=== PATIENT | male | born 1950 | race Caucasian/White ===

== ENCOUNTER 2016-06-26 10:58 | Emergency (ER) | payer MEDICARE, OTHER ==
[~2016-06-26] VITALS: Ht 160 cm; Wt 77.0 kg
[~2016-06-26 10:58] MED LIST: ASPI-557 PO; ASPI325T; ATOR40TA64 PO; CARV3.1232 PO; CETI5TAB26 PO; CLOP75TA; FERR325C PO; HYDR59LO5 TOP; LISI2.5T2 PO; METF-200 PO; NITR0.4T28 SL
[2016-06-26 11:00] VITALS: Ht 160 cm; Wt 77.0 kg
--- OUTSIDE RECORDS SUMMARY | 2016-06-26 11:02 | XMS REPORT | Continuity of Care Document ---
Author Author [facility] Organization [facility] Address Unknown Phone Unavailable Allergies Active Description Code Type Severity Reaction Onset Reported/Identified Relationship to Patient Clinical Status Yes No Known Allergies Drug Allergy 11/12/2011 Yes No Known Drug Allergies Drug Allergy 11/12/2011 Yes No Known Food Allergies Food Allergy 11/12/2011 Yes No Known Medication Allergies NKMA N/A N/A 11/06/2013 Medications Problems Date Dx Coded Attending Type Code Diagnosis Diagnosed By 11/12/2011 Rey Raymond MD Final 410.71 SUBEND INFARCT-INITIAL 11/12/2011 Rey Raymond MD Admitting 786.59 CHEST PAIN NEC 11/15/2011 Rey Raymond MD Final 250.00 DM2/NOS UNCOMP NSU 11/15/2011 Rey Raymond MD Final 272.4 HYPERLIPIDEMIA NEC NOS 11/15/2011 Rey Raymond MD Final 276.1 HYPOSMOLALITY 11/15/2011 Rey Raymond MD Final 276.8 HYPOPOTASSEMIA 11/15/2011 Rey Raymond MD Final 288.60 LEUKOCYTOSIS NOS 11/15/2011 Rey Raymond MD Final 305.1 TOBACCO USE DISORDER 11/15/2011 Rey Raymond MD Final 410.71 SUBEND INFARCT-INITIAL 11/15/2011 Rey Raymond MD Final 414.01 COR -[place] VESSEL 11/15/2011 Rey Raymond MD Final 511.9 PLEURAL EFFUSION NOS 11/15/2011 Rey Raymond MD Admitting 786.59 CHEST PAIN NEC 11/15/2011 Rey Raymond MD Final 799.02 HYPOXEMIA 11/15/2011 Rey Raymond MD Final 250.00 DM2/NOS UNCOMP NSU 11/15/2011 Rey Raymond MD Final 272.4 HYPERLIPIDEMIA NEC NOS 11/15/2011 Rey Raymond MD Final 276.1 HYPOSMOLALITY 11/15/2011 Rey Raymond MD Final 276.8 HYPOPOTASSEMIA 11/15/2011 Rey Raymond MD Final 288.60 LEUKOCYTOSIS NOS 11/15/2011 Rey Raymond MD Final 305.1 TOBACCO USE DISORDER 11/15/2011 Rey Raymond MD Final 414.01 COR -[place] VESSEL 11/15/2011 Rey Raymond MD Final 511.9 PLEURAL EFFUSION NOS 11/15/2011 Rey Raymond MD Final 799.02 HYPOXEMIA Procedures Code Description Performed By Performed On 36.12 AO-COR BYPASS-2 COR ART Moira Atkins MD 11/15/2011 36.15 1 INT NIKITA-COR ART BYPASS Moira Atkins MD 11/15/2011 39.61 EXTRACORPOREAL CIRCULAT Moira Atkins MD 11/15/2011 Results Encounters ACCT No. Visit Date/Time Discharge Status Pt. Type Provider Facility Loc./Unit Complaint [id number] 11/12/2011 13:58:00 2011 15:15:00 DIS Inpatient Rey Raymond MD [facility] on [address]
--- OUTSIDE RECORDS SUMMARY | 2016-06-26 11:03 | XMS REPORT | Continuity of Care Document ---
Author Author [facility] Organization [facility] Address Unknown Phone Unavailable Support Name Relationship Address Phone MERCEDES QUIÑONES MD Caregiver [facility] [address] [place] [address] , [facility] [address] [place] [address] [phone] AMEYA JACKSON MD Caregiver [address] [place] [address] [place] [address] BRANDON VEGAS Next Of Kin [address] [place] [address] Insurance Providers Payer Name Policy Number Subscriber Name Relationship [facility] [id number] Mike Vegas Sr 17 Self Advance Directives Directive Response Recorded Date/Time Ordered Resuscitation Status Full Code 03/18/14 2:39pm Resuscitation Documents on File No 03/18/14 11:05am Problems Medical Problems Problem Onset Date Status Cellulitis of left lower leg Unknown Active Cellulitis of left lower leg Unknown Active Constipation Unknown Active Constipation Unknown Active Medications Medication Dose Route Sig Days/Qty Instructions Order Date Discontinued Date Status [None] 07/22/08 11/11/11 Discontinued Metformin Hcl 500 Mg PO TWICE A DAY 2 Qty BEST TAKEN WITH MEALS 04/03/13 Active Carvedilol 3.125 Mg PO TWICE A DAY 04/03/13 Active Nitroglycerin 0.4 Mg SL NEEDED 04/03/13 Active Aspirin DAILY 10/20/13 Active Atorvastatin Calcium 1 Tab PO BEDTIME 10/20/13 Active Clopidogrel Bisulfate DAILY 10/20/13 Active Ferrous Sulfate 1 Tab PO THREE TIMES A DAY 03/18/14 Active Lisinopril 2.5 Mg PO BEDTIME 03/18/14 Active Social History Social History Problem Response Recorded Date/Time Chewing Tobacco Status No 04/03/2013 11:48am Has the pt used tobacco in the last 12 months No 03/18/2014 2:29pm Tobacco Usage none 10/21/2013 12:48am Query Response Start Date Stop Date Smoking Status Former smoker Hospital Discharge Instructions No hospital discharge instructions. Plan of Care No plan of care. Functional Status Query Response Date Recorded Physical Hygiene Self January 06, 2014 12:29pm Physical Hygiene Self January 06, 2014 12:29pm Allergies, Adverse Reactions, Alerts Allergen Type Severity Reaction Status Last Updated No Known Drug Allergies Allergy Unknown Active 01/06/14 Immunizations Name Given Type Hx Tetanus Diptheria N UNKNOWN Historical Vital Signs Acute Vital Signs Vital Response Date/Time Temperature (Fahrenheit) 97.7 deg F (96.8 - 99.1) Temperature (Calculated Celsius) 36.08150 degrees C (36.0 - 37.3) Temperature Source Temporal Pulse Rate (adult) 53 bpm (60 - 100) Respiratory Rate 16 breaths/min (10 - 20) O2 Sat by Pulse Oximetry 100 % (90 - 100) Oxygen Delivery Method Room Air Blood Pressure 127/65 mm Hg Blood Pressure Source Automatic Cuff Height 5 ft 3 in Weight 181 lb Body Mass Index 32.0 kg/m^2 Results Test Source Date Result Interp. Ref. Range Comments Platelet Function P2Y12 React Units March 19, 2014 6:23am 286 PRU - PRU reference range for non-treated is 194-418.Post Drug Results: Lower PRU levels are associated with antiplatelet effect. PRU results <194 are highly indicative of a P2Y12 inhibitor effect. PRU of >237 corresponds to previously recommended pre-surgical level of <20% inhibition. NOTE: Test not reliable with NSAID use or low platelet counts. Not for use with inherited platelet disorders. Activated Partial Thromboplast Time January 06, 2014 12:34pm 35.7 SEC N 24-36 Alanine Aminotransferase (ALT/SGPT) January 06, 2014 12:34pm 35 U/L N 21 -72 Albumin January 06, 2014 12:34pm 4.1 G/DL N 3.5-5.0 Albumin/Globulin Ratio January 06, 2014 12:34pm 1.4 RATIO N 1.1-2.2 Alkaline Phosphatase January 06, 2014 12:34pm 97 U/L N 38-126 Anion Gap January 06, 2014 12:34pm 11 MEQ/L N 5-15 Aspartate Amino Transf (AST/SGOT) January 06, 2014 12:34pm 24 U/L N 17- 59 BUN/Creatinine Ratio January 06, 2014 12:34pm 13 RATIO N 6-26 Band Neutrophils # July 17, 2010 6:02pm 0.2 T/MM3 - Band Neutrophils % July 17, 2010 6:02pm 2.0 % N 0-6 Basophils # (Auto) January 06, 2014 12:34pm 0.1 T/MM3 N 0-0.2 Basophils (%) (Auto) January 06, 2014 12:34pm 0.6 % N 0-2 Blood Urea Nitrogen January 06, 2014 12:34pm 12.0 MG/DL N 9-20 Calcium Level January 06, 2014 12:34pm 9.0 MG/DL N 8.4-10.2 Calculated Osmolality January 06, 2014 12:34pm 269 MOSM/KG N 261-280 Carbon Dioxide Level January 06, 2014 12:34pm 24 MEQ/L N 22-30 Chemistry Specimen Hemolysis January 06, 2014 12:34pm < 15 0-25 0-25 : No Hemolysis.26-70: Slight Hemolysis - can falsely elevate K and Urine Protein. 71-285: Moderate Hemolysis - can falsely elevate K, Troponin I, CA 19-9, PTH, CSF GLucose, and Urine Protein, and can falsely decrease Phenytoin. 286-999: Gross Hemolysis - can falsely elevate K, Troponin I, CA 19-9, PTH, CSF Glucose, and Urine Protine, and can falsely decrease Phenytoin. Recommend specimen recollection. Chloride Level January 06, 2014 12:34pm 105 MEQ/L N 98-107 Cholesterol Level November 12, 2011 4:40am 158 MG/DL N 132-199 Cholesterol/HDL Ratio November 12, 2011 4:40am 5.6 RATIO H 0-5.0 Conjugated Bilirubin November 11, 2011 8:10am 0.00 MG/DL N 0.00-0.30 Creatine Kinase MB November 11, 2011 8:10pm 4.2 NG/ML H 0-3.4 Creatinine January 06, 2014 12:34pm 0.9 MG/DL N 0.8-1.5 Eosinophils # (Auto) January 06, 2014 12:34pm 0.2 T/MM3 N 0-0.5 Eosinophils # (Manual) July 17, 2010 6:02pm 0.2 T/MM3 N 0-0.5 Eosinophils % (Manual) July 17, 2010 6:02pm 2.0 % N 0-4 Eosinophils (%) (Auto) January 06, 2014 12:34pm 2.1 % N 0-4 Globulin January 06, 2014 12:34pm 3.0 G/DL N 2.4-3.6 Glomerular Filtration Rate Calc January 06, 2014 12:34pm 85 - Glucometer March 19, 2014 6:42am 84 mg/dL N 75-110 Glucose Level January 06, 2014 12:34pm 105 MG/DL N 75-110 HDL Cholesterol Direct November 12, 2011 4:40am 28 MG/DL L 40-60 Hematocrit January 06, 2014 12:34pm 37.3 % L 41-53 Hemoglobin January 06, 2014 12:34pm 12.1 GM/DL L 13.5-17.5 Icterus Index January 06, 2014 12:34pm < 2 0-7 Immature Granulocyte # (Auto) January 06, 2014 12:34pm 0.02 T/MM3 N 0.00 -0.03 Immature Granulocyte % (Auto) January 06, 2014 12:34pm 0.2 % N 0.0-0.5 LDL Cholesterol, Calculated November 12, 2011 4:40am 130 N 66-159 Lab Scanned Report July 17, 2010 10:46pm LAB TEST FORM REQUEST [id number] - Lymphocytes # (Auto) January 06, 2014 12:34pm 2.3 T/MM3 N 1-4.8 Lymphocytes # (Manual) July 17, 2010 6:02pm 4.4 T/MM3 N 1-4.8 Lymphocytes % (Manual) July 17, 2010 6:02pm 38.0 % N 23-45 Lymphocytes (%) (Auto) January 06, 2014 12:34pm 21.0 % L 23-45 Magnesium Level January 06, 2014 12:34pm 2.1 MG/DL N 1.6-2.3 Mean Corpuscular Hemoglobin January 06, 2014 12:34pm 30.6 UUG N 26-34 Mean Corpuscular Hemoglobin Concent January 06, 2014 12:34pm 32.4 GM/DL N 31-37 Mean Corpuscular Volume January 06, 2014 12:34pm 94.2 UM3 N 80-100 Mean Platelet Volume January 06, 2014 12:34pm 8.6 UM3 L 9.4-12.4 Monocytes # (Auto) January 06, 2014 12:34pm 0.7 T/MM3 N 0-0.8 Monocytes # (Manual) July 17, 2010 6:02pm 0.1 T/MM3 N 0-0.8 Monocytes % (Manual) July 17, 2010 6:02pm 1.0 % N 0-9.0 Monocytes (%) (Auto) January 06, 2014 12:34pm 6.4 % N 0-9.0 HT-Lzf-K-Type Natriuretic Peptide January 06, 2014 12:34pm 215 PG/ML H 0 -175 Rule in cut points: <50 years old=450; 50-75 years old=900; >75 years old=1800; When utilizing ProBNP rule-in cut points, adjustment for impaired renal function is typically not required. Neutrophils # (Auto) January 06, 2014 12:34pm 7.5 T/MM3 N 1.8-7.7 Neutrophils # (Manual) July 17, 2010 6:02pm 6.7 T/MM3 N 1.8-7.7 Neutrophils % (Manual) July 17, 2010 6:02pm 57.0 % N 33-66 Neutrophils (%) (Auto) January 06, 2014 12:34pm 69.7 % H 33-66 Platelet Count January 06, 2014 12:34pm 350 T/MM3 N 130-400 Potassium Level January 06, 2014 12:34pm 4.4 MEQ/L N 3.6-5 Prothromb Time International Ratio January 06, 2014 12:34pm 1.17 H 0.81- 1.09 THERAPUTIC RANGE=2.00-3.00 FOR ANTI-THROMBOSIS THERAPUTIC RANGE=2.50- 3.50 FOR IMPLANTED VALVE RDW Standard Deviation January 06, 2014 12:34pm 47.9 FL N 36.9-50.2 Red Blood Count January 06, 2014 12:34pm 3.96 M/MM3 L 4.50-5.90 Sodium Level January 06, 2014 12:34pm 140 MEQ/L N 134-144 Thyroid Stimulating Hormone (TSH) January 06, 2014 12:34pm 0.89 MIU/L N 0.47-4.68 Total Bilirubin January 06, 2014 12:34pm 0.40 MG/DL N 0.20-1.30 Total Creatine Kinase November 11, 2011 8:10pm 156 U/L N 55-170 Total Protein January 06, 2014 12:34pm 7.1 G/DL N 6.3-8.2 Triglycerides Level November 12, 2011 4:40am 261 MG/DL H 40-160 Troponin I January 06, 2014 12:34pm < 0.012 ng/ml 0-0.12 Turbidity January 06, 2014 12:34pm < 20 0-20 Unconjugated Bilirubin November 11, 2011 8:10am 0.20 MG/DL N 0.00-1.10 VLDL Cholesterol November 12, 2011 4:40am 52.2 MG/DL H 0-28 White Blood Count January 06, 2014 12:34pm 10.8 T/MM3 N 4.5-11.0 Helicobacter pylori Rapid Urease Gastric Biopsy March 19, 2014 7:50am Name: MIKE VEGAS SR Unit #: [id number] : 1950 Sex: M Loc / Svc: ED DOS: 01/06/14 Signed Report #: [id number] DIAGNOSTIC IMAGING REPORT TYPE OF EXAM: KUB W/UPRIGHT Dictated By: SARAH MELÉNDEZ MD INDICATION: ITS.REASON: constipation, abdominal pain KUB W/UPRIGHT: Comparison: None Findings: The visualized lung bases are clear. There is no free air on the upright view. The bowel gas pattern is nonobstructive and nonspecific. Gas is seen in nondilated small and large bowel to the level of the rectum. Moderate stool is seen throughout the colon. The bony structures are grossly unremarkable. Impression: Nonobstructive nonspecific bowel gas pattern. . Procedures Procedure Status Date Provider(s) PLACE NEEDLE IN VEIN completed 01/06/14 CLAUDIO CONNER MD ROUTINE VENIPUNCTURE completed 01/06/14 CHEST X-RAY 1 VIEW FRONTAL completed 01/06/14 X-RAY EXAM OF ABDOMEN completed 01/06/14 COMPREHEN METABOLIC PANEL completed 01/06/14 ASSAY OF MAGNESIUM completed 01/06/14 ASSAY OF NATRIURETIC PEPTIDE completed 01/06/14 ASSAY THYROID STIM HORMONE completed 01/06/14 ASSAY OF TROPONIN QUANT completed 01/06/14 COMPLETE CBC W/AUTO DIFF WBC completed 01/06/14 PROTHROMBIN TIME completed 01/06/14 THROMBOPLASTIN TIME PARTIAL completed 01/06/14 ELECTROCARDIOGRAM TRACING completed 01/06/14 EMERGENCY DEPT VISIT completed 01/06/14 [id number]"STERILE WATER, SALINE AND/OR DEXTROSE, DILUENT/FLUSH, completed Esophagogastroduodenoscopy (EGD) with closed biopsy completed 03/19/14 MERCEDES QUIÑONES MD Colonoscopy completed 03/19/14 MERCEDES QUIÑONES MD Encounters Encounter Location Date/Time Departed Emergency Room [facility] 01/06/14 12:14pm
--- OUTSIDE RECORDS SUMMARY | 2016-06-26 11:04 | XMS REPORT | Continuity of Care Document ---
Author Author [facility] Organization [facility] Address Unknown Phone Unavailable Allergies Active Description [...] 11/15/2011 Rey Raymond MD Final 414.01 COR -[place] VESSEL 11/15/2011 Rey Raymond MD Final 511.9 [...] 11/15/2011 Rey Raymond MD Final 414.01 COR -[place] VESSEL 11/15/2011 Rey Raymond MD Final 511.9 [...] Status Pt. Type Provider Facility Loc./Unit Complaint [id number] 11/12/2011 13:58:00 2011 15:15:00 DIS Inpatient Rey Raymond MD [facility] on [address]
--- OUTSIDE RECORDS SUMMARY | 2016-06-26 11:04 | XMS REPORT | Continuity of Care Document ---
Author Author [facility] Organization [facility] Address Unknown Phone Unavailable Support Name Relationship Address Phone ANOOP WHITLEY MD Caregiver [facility] [address] [facility] , [place] [address] [place] [id number] AMEYA JACKSON MD Caregiver [address] [place] [address] CLAUDIO CONNER MD Caregiver [address] [facility] [place] [phone] BRANDON VEGAS Next Of Kin [address] [place], [place] [id number] Insurance Providers Payer Name Policy Number Subscriber Name Relationship [facility] [id number] Mike Vegas Sr 17 Self Problems Medical Problems Problem Onset Date Status [...] 10/20/13 Active Clopidogrel Bisulfate DAILY 10/20/13 Active Bisacodyl 2 Tab PO DAILY PRN CONSTIPATION 01/06/14 Active Docusate Sodium 1 Cap PO TWICE A DAY 10 Days 01/06/14 Active Na Phos,M-B/Na Phos,Di-Ba 1 Enema RECTALLY NEEDED PRN CONSTIPATION 5 Days 01/06/14 Active Social History Social History Problem Response Recorded Date/Time Smoking Status Former smoker 01/06/2014 12:29pm When did patient START smoking? 196401/06/2014 12:29pm When did patient STOP smoking? 201101/06/2014 12:29pm Chewing Tobacco Status No 04/03/2013 11:48am Hx Substance Use No 01/06/2014 12:29pm Hx Alcohol Use Y FEW BEERS DAILY 01/06/2014 12:29pm Has the pt used tobacco in the last 12 months No 04/03/2013 11:48am Query Response Start Date Stop Date Smoking Status Former smoker Hospital Discharge Instructions No hospital discharge instructions. Plan of Care No plan of care. Functional Status Query Response Date Recorded Physical Hygiene Self January 06, 2014 12:29pm Disabilities None January 06, 2014 12:29pm Devices Used Glasses None January 06, 2014 12:29pm Dressing Self January 06, 2014 12:29pm Ambulation Self January 06, 2014 12:29pm Diet Self January 06, 2014 12:29pm Mental Status Alert January 06, 2014 2:05pm Disabilities None January 06, 2014 12:29pm Devices Used Glasses None January 06, 2014 12:29pm Physical Hygiene Self January 06, 2014 12:29pm Dressing Self January 06, 2014 12:29pm Ambulation Self January 06, 2014 12:29pm Diet Self January 06, 2014 12:29pm Allergies, Adverse Reactions, Alerts Allergen Type Severity Reaction Status Last Updated No Known Drug Allergies Allergy Unknown Active 01/06/14 Immunizations Name Given Type Hx Influenza Vaccination Y MAR 2013 Historical Hx Pneumococcal Vaccination Y 2011 Historical Hx Influenza Vaccination Y MAR 2013 Historical Hx Tetanus Diptheria N UNKNOWN Historical Vital Signs Acute Vital Signs Vital Response Date/Time Temperature (Fahrenheit) 97.8 deg F (96.8 - 99.1) Temperature (Calculated Celsius) 36.11079 degrees C (36.0 - 37.3) Pulse Rate (adult) 62 bpm (60 - 100) Respiratory Rate 14 breaths/min (10 - 20) O2 Sat by Pulse Oximetry 97 % (90 - 100) Blood Pressure 96/64 mm Hg Height 5 ft 4 in Weight 185 lb Body Mass Index 31.0 kg/m^2 Results Test Source Date Result Interp. Ref. Range Comments Activated Partial Thromboplast Time January 06, 2014 [...] 06, 2014 12:34pm 24 MEQ/L N 22-30 Chloride Level January 06, 2014 12:34pm 105 [...] 06, 2014 12:34pm 3.0 G/DL N 2.4-3.6 Glucose Level January 06, 2014 12:34pm 105 MG/DL N 75-110 Hematocrit January 06, 2014 12:34pm 37.3 % L 41-53 Hemoglobin January 06, 2014 12:34pm 12.1 GM/DL L 13.5-17.5 LDL Cholesterol, Calculated November 12, 2011 4:40am 130 N 66-159 Lymphocytes # (Auto) January 06, 2014 12:34pm [...] 06, 2014 12:34pm 6.4 % N 0-9.0 Neutrophils # (Auto) January 06, 2014 12:34pm [...] 06, 2014 12:34pm < 0.012 ng/ml 0-0.12 Unconjugated Bilirubin November 11, 2011 8:10am 0.20 MG/DL N 0.00-1.10 VLDL Cholesterol November 12, 2011 4:40am 52.2 MG/DL H 0-28 White Blood Count January 06, 2014 12:34pm 10.8 T/MM3 N 4.5-11.0 Chemistry Specimen Hemolysis January 06, 2014 12:34pm [...] can falsely decrease Phenytoin. Recommend specimen recollection. Glucometer November 12, 2011 10:38am 89 mg/dL N 75-110 Lab Scanned Report July 17, 2010 10:46pm LAB TEST FORM REQUEST [id number] - HDL Cholesterol Direct November 12, 2011 4:40am 28 MG/DL L 40-60 Turbidity January 06, 2014 12:34pm < 20 0-20 Glomerular Filtration Rate Calc January 06, 2014 12:34pm 85 - Immature Granulocyte # (Auto) January 06, 2014 12:34pm 0.02 T/MM3 N 0.00 -0.03 Immature Granulocyte % (Auto) January 06, 2014 12:34pm 0.2 % N 0.0-0.5 Icterus Index January 06, 2014 12:34pm < 2 0-7 PP-Cig-Z-Type Natriuretic Peptide January 06, 2014 12:34pm 215 PG/ML H 0 -175 Rule in cut points: <50 years old=450; 50-75 years old=900; >75 years old=1800; When utilizing ProBNP rule-in cut points, adjustment for impaired renal function is typically not required. Procedures No known history of procedures. Encounters Encounter Location Date/Time Departed Emergency Room [facility] 01/06/14 12:14pm Departed Emergency Room [facility] 10/20/13 4:52pm Recent Diagnosis
[2016-06-26] MEDS ORDERED: CETI-269 PO (11:32)
[2016-06-26] MEDS ORDERED: HYDR30CR53 TOP (11:35)
[2016-06-26] MEDS ORDERED: CLOP75TA33 PO (11:35)
[2016-06-26] MEDS ORDERED: LATA2.5D7 LEFT EYE (11:40)
[2016-06-26] MEDS ORDERED: BRIM5DRO4 LEFT EYE (11:40)
[2016-06-26] MEDS ORDERED: OMEP20CA10 PO (11:40)
[2016-06-26] MEDS ORDERED: DORZ10DR15 LEFT EYE (11:40)
--- NOTE | 2016-06-26 11:49 | ERPDOC ---
Departure Disposition Decision Date: Jun 26, 2016 Disposition Decision Time: 14:54 Disposition: 01 DISCHARGED HOME, SELF-CARE Impression Impression Impression: Primary Impression: Cellulitis of leg Severity: Moderate Condition: Stable Seen By: Physician only Referrals: AMEYA JACKSON MD (PCP/Family) Patient Instructions: Cellulitis (ED) Problems/Meds/Labs Reviewed?: Yes Medications reviewed and manag: Yes Additional Instructions: Keflex 500 mg, 2 tablets twice daily for 10 days. Bactrim DS, one tablet twice daily for 10 days. Follow up with Primary Care Provider early next week. Follow up care ordered?: Yes Mental Status: Alert, Oriented Scripts Cephalexin (Keflex) 500 Mg Capsule 2 CAP PO BID, #40 CAP Prov: ALEJANDRO HOOD MD 06/26/16 Sulfamethoxazole/Trimethoprim (Bactrim Ds Tablet) 1 Each Tablet 1 TAB PO BID, #20 TAB Take 1 tablet, by mouth, 2 times a day. Prov: ALEJANDRO HOOD MD 06/26/16 HPI General Chief Complaint: Lower Extremity Pain Stated Complaint: POSS FOOT AND LEG INFECTION Time Seen by Provider: 11:46 HPI Foot/Ankle Initial Comments 65-year-old male with left lower leg pain. Patient had redness and some tightness in his lower left leg yesterday, overnight it worsened and today is painful. He has had previous cellulitis of the leg, was treated by his physician and improved. This was about 3 years ago he has not had trouble since then. He has not recovered medication and is placed on. He does take a blood thinner. Has had no injury to his leg. He knows of no vascular disease in leg. He was sent over from acute care due to low blood pressure and possibility of sepsis. He states he feels fine. Allergies: Coded Allergies: No Known Drug Allergies (Verified Allergy, Unknown, 06/26/16) Past History Past Medical History Metabolic: diabetes Cardiac: CAD GI: constipation Neurological: head injury, seizures Surgical History Cardiac: cardiac bypass Vaccines Hx Tetanus Diptheria: No (UNKNOWN ) Social History # of Packs/Tins per Day: 1.0 Second Hand Exposure: Yes Quit Date: Mar 14, 2013 Substance Use Type: does not use Alcohol Intake: occasionally Record Review Pertinent history updated: Yes Review of Systems Musculoskeletal General: see HPI Integumentary Skin: see HPI All other Systems All Other Systems: Reviewed and Negative Exam General General Nourishment: well nourished, well developed, appears stated age, no acute distress Vital Signs: Temperature: 99.3, Source: Oral, Heart Rate: 78, Respiratory Rate : 15, BP: 98/57, Pulse Oximetry: 97 Height (Feet): 5 Height (Inches): 3.00 Respiratory (brief) Respiratory Brief: FOUND: clear all quarles, equal bilaterally Cardiovascular (brief) Cardiac Brief: FOUND: regular rate, regular rhythm Integumentary (brief) Integumentary Brief: FOUND: pink, warm Comments Except for left leg which is red from lower aspect of patella to ankle, with significant redness circumferential around the calf. Warm to the touch Neurologic RN Documented GCS Eye Opening: Verbal: Motor: Total: Differential Diagnoses Considering: Other (cellulitis, abscess, sepsis) Progress Results/Orders Orders Procedure Category Date Status Time Cbc W/Auto LAB 06/26/16 Complete Diff-Reflex Manual Cmp - Comprehensive LAB 06/26/16 Complete Metabolic Lactate - Lactic Acid LAB 06/26/16 Complete Iv Lock (Ed Only) EDM 06/26/16 Transmitted 11:56 Blood Culture RAMONA 06/26/16 In Process 11:56 Normal Saline (Normal PHA 06/26/16 Complete Saline Iv) 12:00 Ceftriaxone I.V. (Er PHA 06/26/16 In Process Use Only) (Rocephin 14:00 Lab Results Laboratory Tests Test 06/26/16 12:29 White Blood Count 15.1T/MM3 Red Blood Count 4.19M/MM3 Hemoglobin 13.0GM/DL Hematocrit 39.2% Mean Corpuscular Volume 93.6UM3 Mean Corpuscular Hemoglobin 31.0UUG Mean Corpuscular Hemoglobin Concent 33.2GM/DL RDW Standard Deviation 44.5FL Platelet Count 183T/MM3 Mean Platelet Volume 8.9UM3 Immature Granulocyte % (Auto) % Neutrophils (%) (Auto) % Lymphocytes (%) (Auto) % Monocytes (%) (Auto) % Eosinophils (%) (Auto) % Basophils (%) (Auto) % Absolute Immature Granulocyte (auto T/MM3 Absolute Neutrophils (auto) T/MM3 Absolute Lymphocytes (auto) T/MM3 Absolute Monocytes (auto) T/MM3 Absolute Eosinophils (auto) T/MM3 Absolute Basophils (auto) T/MM3 Neutrophils % (Manual) 91.0% Lymphocytes % (Manual) 7.0% Monocytes % (Manual) 2.0% Absolute Neutrophils (Manual) 13.7T/MM3 Lymphocytes # (Manual) 1.1T/MM3 Monocytes # (Manual) 0.3T/MM3 Red Cell Morphology Comment Normal Turbidity < 20 Sodium Level 140MEQ/L Potassium Level 3.6MEQ/L Chloride Level 102MEQ/L Carbon Dioxide Level 26MEQ/L Anion Gap 12MEQ/L Blood Urea Nitrogen 19.0MG/DL Creatinine 1.1MG/DL Glomerular Filtration Rate Calc 67 BUN/Creatinine Ratio 17RATIO Glucose Level 102MG/DL Calculated Osmolality 271MOSM/KG Calcium Level 8.9MG/DL Total Bilirubin 1.00MG/DL Icterus Index < 2 Aspartate Amino Transf (AST/SGOT) 25U/L Alanine Aminotransferase (ALT/SGPT) 37U/L Alkaline Phosphatase 62U/L Total Protein 6.6G/DL Albumin 3.6G/DL Globulin 3.0G/DL Albumin/Globulin Ratio 1.2RATIO Plasma Lactate 1.0MMOL/L Chemistry Specimen Hemolysis < 15 Medications Current ED Medications Sodium Chloride 1,000 ml @ 500 mls/hr Q2H ONCE IV Last administered on 12:30; Start 06/26/16 at 12:00; Stop 06/26/16 at 13:59; Status DC Ceftriaxone Sodium/Sodium Chloride (Rocephin/NS) 100 ml @ 100 mls/hr O ONCE IV Last administered on 06/26/16 13:51; Start 06/26/16 at 14:00; Stop at 14:59 Progress Progress White count 15.1, lactate is negative. Cellulitis of leg is quite impressive. Blood cultures ordered. Patient given 1 g of Rocephin IV. We will discharge him on Keflex 500 mg 2 tabs twice daily and Bactrim DS one tablet twice daily for better coverage of the leg. At this point he is okay to stay outpatient, however if symptoms worsen at all he needs to return and we will reevaluate. ALEJANDRO HOOD MD Jun 26, 2016 11:49
[2016-06-26] MEDS ORDERED: NORMAL SALINE 1,000 ML IV ONE (12:00)
--- OUTSIDE RECORDS SUMMARY | 2016-06-26 12:05 | XMS REPORT | Continuity of Care Document ---
Author Author [facility] Organization [facility] Address Unknown Phone Unavailable Allergies Active Description [...] 11/15/2011 Rey Raymond MD Final 414.01 COR -[place] [facility] 11/15/2011 Rey Raymond MD Final 511.9 [...] 11/15/2011 Rey Raymond MD Final 414.01 COR -[place] VES[facility] 11/15/2011 Rey Raymond MD Final 511.9 [...] Status Pt. Type Provider Facility Loc./Unit Complaint [id number] 11/12/2011 13:58:00 2011 15:15:00 DIS Inpatient Rey Raymond MD [facility] on [address]
--- OUTSIDE RECORDS SUMMARY | 2016-06-26 12:07 | XMS REPORT | Continuity of Care Document ---
Author Author [facility] Organization [facility] Address Unknown Phone Unavailable Allergies Active Description [...] 11/15/2011 Rey Raymond MD Final 414.01 [place] [facility] 11/15/2011 Rey Raymond MD Final 511.9 [...] 11/15/2011 Rey Raymond MD Final 414.01 [place] [facility] 11/15/2011 Rey Raymond MD Final 511.9 [...] Status Pt. Type Provider Facility Loc./Unit Complaint [id number] 11/12/2011 13:58:00 2011 15:15:00 DIS Inpatient Rey Raymond MD [facility] on [address]
--- OUTSIDE RECORDS SUMMARY | 2016-06-26 12:07 | XMS REPORT | Continuity of Care Document ---
Author Author [facility] Organization [facility] Address Unknown Phone Unavailable Support Name Relationship Address Phone MERCEDES QUIÑONES MD Caregiver [facility] [address] [place] [address] , [facility] [address] [place] [address] [phone] AMEYA JACKSON MD Caregiver [address] [place] [address] [place] [address] BRANDON VEGAS Next Of Kin [address] [place] [address] Insurance Providers Payer Name Policy Number Subscriber Name Relationship [facility] [id number] Mike Vegas Sr 18 Self Advance Directives [...] F (96.8 - 99.1) Temperature (Calculated Celsius) 36.91669 degrees C (36.0 - 37.3) Temperature Source [...] 17, 2010 10:46pm LAB TEST FORM REQUEST [id number] - Lymphocytes # (Auto) January 06, 2014 [...] 06, 2014 12:34pm 6.4 % N 0-9.0 AI-Rsl-I-Type Natriuretic Peptide January 06, 2014 12:34pm 215 [...] 7:50am Name: MIKE VEGAS SR Unit #: [id number] : 1950 Sex: M Loc / Svc: ED DOS: 01/06/14 Signed Report #: [id number] DIAGNOSTIC IMAGING REPORT TYPE OF EXAM: KUB [...] completed 01/06/14 EMERGENCY DEPT VISIT completed 01/06/14 [id number]"STERILE WATER, SALINE AND/OR DEXTROSE, DILUENT/FLUSH, completed Esophagogastroduodenoscopy (EGD) with closed biopsy completed 03/19/14 MERCEDES QUIÑONES MD Colonoscopy completed 03/19/14 MERCEDES QUIÑONES MD Encounters Encounter Location Date/Time Departed Emergency Room [facility] 01/06/14 12:14pm
--- OUTSIDE RECORDS SUMMARY | 2016-06-26 12:08 | XMS REPORT | Continuity of Care Document ---
Author Author [facility] Organization [facility] Address Unknown Phone Unavailable Support Name Relationship Address Phone ANOOP WHITLEY MD Caregiver [facility] [address] [facility] , [place] [address] [place] [phone] AMEYA JACKSON MD Caregiver [address] [place] [address] CLAUDIO CONNER MD Caregiver [address] [facility] [place] [phone] BRANDON VEGAS Next Of Kin [address] [place], [place] [id number] Insurance Providers Payer Name Policy Number Subscriber Name Relationship [facility] [id number] Mike Vegas Sr 17 Self Problems Medical [...] F (96.8 - 99.1) Temperature (Calculated Celsius) 36.47196 degrees C (36.0 - 37.3) Pulse Rate [...] 17, 2010 10:46pm LAB TEST FORM REQUEST [id number] - HDL Cholesterol Direct November 12, 2011 [...] January 06, 2014 12:34pm < 2 0-7 EE-Tnj-K-Type Natriuretic Peptide January 06, 2014 12:34pm 215 PG/ML H 0 -175 Rule in cut points: <50 years old=450; 50-75 years old=900; >75 years old=1800; When utilizing ProBNP rule-in cut points, adjustment for impaired renal function is typically not required. Procedures No known history of procedures. Encounters Encounter Location Date/Time Departed Emergency Room [facility] 01/06/14 12:14pm Departed Emergency Room [facility] 10/20/13 4:52pm Recent Diagnosis
--- OUTSIDE RECORDS SUMMARY | 2016-06-26 12:08 | XMS REPORT | Continuity of Care Document ---
Author Author [facility] Address Unknown Phone Unavailable Care Team Providers Care In Flight Crew Member Name Role Phone AMEYA JACKSON MD Primary Care Physician [phone] Insurance Providers Guarantor Mike Vegas Sr Address [address] [place] [address] Email DENIED Payer Medicare Policy Number [id number] Subscriber's Name Mike Vegas Sr Relationship 18 Self Effective Date 05 Payer [employer] Medicare Supplement Policy Number [id number] Subscriber's Name Mike Vegas Sr Relationship 18 Self Chief Complaint and Reason for Visit Chief Complaint Skin Rash/Abscess/Injury Reason for Visit Fever Cellulitis Hypotension Problems Active Problems Medical Problem Onset Date Status Cellulitis of left lower leg Unknown Acute Cellulitis of left lower leg Unknown Acute Constipation Unknown Acute Constipation Unknown Acute Past Problems Medical Problem Onset Date Cellulitis Unknown Fever Unknown Hypotension Unknown Medications Current Home Medications Medication Dose Units Route Directions Days Qty Instructions Start Date Aspirin (Aspir 81) 81 Mg Tablet. 1 Tab Oral Daily 30 Tablet 06/26 Atorvastatin Calcium 40 Mg Tablet 1 Tab Oral Bedtime 10/20/13 Carvedilol (Coreg) 3.125 Mg Tablet 3.125 Mg Oral Twice A Day Cetirizine Hcl 5 Mg Tablet 1 Tab Oral Daily 06/26/16 Clopidogrel Bisulfate (Plavix) 75 Mg Tablet Daily 10/20/13 Ferrous Sulfate (Iron) 325 Mg Capsule.er 1 Tab Oral Three Times A Day BEST WITH FOOD. 03/18/14 Hydrocortisone 59 Applic/59 Ml Lotion 1 Applic Topically Twice A Day 60 Milliliter 06/26/16 Lisinopril 2.5 Mg Tablet 2.5 Mg Oral Bedtime 03/18/14 Metformin Hcl 500 Mg Tablet 500 Mg Oral Twice A Day 2 Tablet BEST TAKEN WITH MEALS 04/03/13 Nitroglycerin (Nitrostat) 0.4 Mg Tab.subl 0.4 Mg Sublingual As Needed 04/03/13 Past Home Medications Medication Directions Ordered Status None , 07/22/08 Discontinued Social History Social History Problem Response Recorded Date/Time Onset Date Status Chewing Tobacco Status No 04/03/2013 11:48am Not Applicable Not Applicable Has the pt used tobacco in the last 12 months No 03/18/2014 2:29pm Not Applicable Not Applicable Tobacco Usage none 10/21/2013 12:48am Not Applicable Not Applicable Hospital Discharge Instructions No hospital discharge instructions. Plan of Care Discharge Date 06/26/16 10:44am Disposition 02 TO [facility] Condition at Discharge Stable Prescriptions See Medication Section Referrals AMEYA JACKSON MD Address: [address] [place] [address] [phone] Functional Status No functional status results. Allergies, Adverse Reactions, Alerts Allergen Type Severity Reaction Status Last Updated No Known Drug Allergies Allergy Unknown Active 06/26/16 Immunizations Query Response on File Recorded Date/Time Hx Tetanus Diptheria N UNKNOWN 01/06/14 12:29pm Influenza Vaccine Hx DEC 2015 06/26/16 10:32am Vital Signs Acute Vital Signs Vital Response Date/Time Temperature (Fahrenheit) 99.1 deg F (96.8 - 99.1) 06/26/2016 10:11am Temperature (Calculated Celsius) 37.27542 degrees C (36.0 - 37.3) 06/26/2016 10:11am Pulse Rate (adult) 86 bpm (60 - 100) 06/26/2016 10:11am Respiratory Rate 20 breaths/min (10 - 20) 06/26/2016 10:11am O2 Sat by Pulse Oximetry 95 % (90 - 100) 06/26/2016 10:11am Blood Pressure 87/59 mm Hg 06/26/2016 10:11am Height (Inches) 64.00 inches 06/26/2016 10:11am Weight (Kilograms) 85.000 kg 06/26/2016 10:11am Body Mass Index (BMI) 32.0 06/26/2016 10:11am Results No known relevant diagnostic tests, laboratory data and/or discharge summary. Procedures No known history of procedures. Encounters Encounter Location Arrival/Admit Date Discharge/Depart Date Attending Provider Departed Emergency Room [facility] 06/26/16 10:07am 06/26/16 10: 44am NAHEED SANCHEZ APRN Recent Diagnosis
--- NOTE | 2016-06-26 12:30 | NUR ---
LAB LAB AT BEDSIDE, BLOOD DRAWN
[2016-06-26 12:38] LABS: HCT - HEMATOCRIT 39.2 % (41-53); MEAN CORPUSCULAR HGB CONC(MCHC 33.2 GM/DL (31-37); MEAN CORPUSCULAR VOLUME 93.6 UM3 (80-100); MEAN PLATELET VOLUME 8.9 UM3 (9.4-12.4); RED BLOOD COUNT 4.19 M/MM3 (4.50-5.90); WBC - WHITE BLOOD COUNT 15.1 T/MM3 (4.5-11.0)
[2016-06-26 12:45] LABS: ALBUMIN 3.6 G/DL (3.5-5.0); ALBUMIN/GLOBULIN RATIO 1.2 RATIO (1.1-2.2); ALKALINE PHOSPHATASE 62 U/L (38-126); ALT (SGPT) 37 U/L (21-72); ANION GAP 12 MEQ/L (5-15); AST (SGOT) 25 U/L (17-59); BUN/CREATININE RATIO 17 RATIO (6-26); CALCIUM 8.9 MG/DL (8.4-10.2); CHLORIDE 102 MEQ/L (98-107); CO2 - CARBON DIOXIDE 26 MEQ/L (22-30); CREATININE 1.1 MG/DL (0.8-1.5); GLOMERULAR FILTRATION RATE 67; GLUCOSE 102 MG/DL (75-110); POTASSIUM 3.6 MEQ/L (3.6-5); SODIUM 140 MEQ/L (134-144); TOTAL PROTEIN 6.6 G/DL (6.3-8.2)
[2016-06-26 12:54] LABS: LYMPHOCYTES # (MANUAL) 1.1 T/MM3 (1-4.8); MONOCYTES # (MANUAL) 0.3 T/MM3 (0-0.8); NEUTROPHILS #(MANUAL)-ABSOLUTE 13.7 T/MM3 (1.8-7.7); TOTAL CELLS COUNTED 100 %
--- NOTE | 2016-06-26 13:35 | NUR ---
UPDATE PATIENT LYING IN BED RESTING. DENIES NEEDS AT THIS TIME.
[2016-06-26] MEDS ORDERED: CEFTRIAXONE I.V. (ER USE ONLY) 1 G in NORMAL SALINE 100 ML IV ONE (14:00)
--- NOTE | 2016-06-26 14:16 | NUR ---
PROVIDER DR HOOD AT BEDSIDE TO DISCUSS POC
--- NOTE | 2016-06-26 14:38 | NUR ---
ACTIVITY PATIENT AMBULATORY TO RESTROOM, TOLERATES ACTIVITY WELL.
[2016-06-26] MEDS ORDERED: CEPH-583 PO (15:01)
[2016-06-26] MEDS ORDERED: SULF1TAB42 PO (15:01)
[2016-06-26 15:05] VITALS: BP 101/58; PULSE 82; RESP 18; TEMP 99.4; O2SAT 94
== END 2016-06-26 15:05 | disposition home or self-care (01) ==
LOC: ED 10:58
DX: L03.116 Cellulitis of left lower limb (principal)
CPT/HCPCS: 36415; 80053; 83605; 85025; 87040; 96361; 96365; 99284; J0696; J7030; J7050